=== PATIENT | female | born 1950 | race Caucasian/White ===

== ENCOUNTER 2018-04-23 14:15 | Emergency (ER) | payer MEDICARE, BC ==
[2018-04-23] MEDS ORDERED: IBUPROFEN 600 MG TAB PO (15:00)
[2018-04-23] MEDS: IBUPROFEN 800 MG TAB PO (15:01)
[2018-04-23] MEDS: METHOCARBAMOL 750 MG TAB PO (17:08)
== END 2018-04-23 17:12 | disposition home or self-care (01) ==
LOC: FTE 14:15
DX: S63.501A Unspecified sprain of right wrist, initial encounter (principal); W01.198A Fall on same level from slipping, tripping and stumbling with subsequent striking against other object, initial encounter; Y92.9 Unspecified place or not applicable
CPT/HCPCS: 72100; 73110-RT; 73130-RT; 99284-25